=== PATIENT | female | born 1950 | race Caucasian/White ===

== ENCOUNTER 2019-04-01 06:35 | Day surgery (SDC) | payer MEDICARE, BC ==
[2019-04-01] MEDS ORDERED: Lactated Ringers 1,000 ML IV SCH (07:15)
[2019-04-01] MEDS ORDERED: Propofol 200 MG/20 ML SDV ONE ×2 (07:17→07:59)
[2019-04-01] MEDS ORDERED: Midazolam 1 MG/ML 2 ML SDV ONE (07:17)
[2019-04-01] MEDS ORDERED: fentaNYL 100 MCG/2 ML SDV ONE (07:17)
[2019-04-01 09:02] VITALS: PULSE 43
[2019-04-01 09:14] VITALS: BP 120/78
--- NOTE | 2019-04-01 10:59 | OR ---
DATE OF PROCEDURE: 04/01/2019 SURGEON: Dago Watt MD PREOPERATIVE DIAGNOSIS: History of colon polyps. POSTOPERATIVE DIAGNOSIS: 1. Poor colonoscopy prep. 2. Diverticulosis, both right and left side. 3. Two small transverse colon polyps. PROCEDURE PERFORMED: Colonoscopy to the cecum with biopsy resection of transverse colon polyp and proximal transverse colon polyp. ANESTHESIA: IV anesthesia with monitored anesthesia care. INDICATION: This 69-year-old white female is referred for a colonoscopy because of history of colon polyps. She says her last colonoscopic exam was done about 3 years ago. I counseled her for the procedure including risks and alternatives and she gave her informed consent to proceed. DESCRIPTION OF PROCEDURE: The patient was placed in the left lateral decubitus position. IV anesthesia was administered by the Anesthesia Service. Time-out was held. A rectal exam was performed, which was unremarkable except for noting some stool. The flexible video Olympus colonoscope was introduced through her anus, up her rectum, out her colon, all the way to the cecum. En route, we saw both right and left-sided diverticula. There was no bleeding nor inflammation associated with any of them. Additionally, en route in the midtransverse colon, we saw a small polyp which was removed with a few bites of biopsy forceps. Once the cecum was reached, the scope was slowly withdrawn examining the mucosa throughout. Here, another small polyp was seen in the proximal transverse colon, which likewise was removed with the biopsy forceps. The scope was then withdrawn the rest away with no other lesions noted other than previously noted. The scope was retroflexed in the rectum with the distal rectum appearing unremarkable. The scope was straightened and removed. She tolerated the procedure well. Dago Watt MD /[id number]
== END 2019-04-01 10:06 | disposition home or self-care (01) ==
LOC: JP.SDS 06:35
PROVIDERS: ATTEND Surgery
DX: Z12.11 Encounter for screening for malignant neoplasm of colon (principal); D12.3 Benign neoplasm of transverse colon; K63.5 Polyp of colon; K57.30 Diverticulosis of large intestine without perforation or abscess without bleeding; E78.5 Hyperlipidemia, unspecified; I10 Essential (primary) hypertension; I25.10 Atherosclerotic heart disease of native coronary artery without angina pectoris; E66.01 Morbid (severe) obesity due to excess calories; Z68.39 Body mass index [BMI] 39.0-39.9, adult; Z86.010 Personal history of colon polyps
CPT/HCPCS: 45380; 88305; J2250; J2704; J3010; J7120

== ENCOUNTER 2022-04-02 07:17 | Day surgery (SDC) | payer MEDICARE, BC ==
[~2022-04-02 07:17] MED LIST: Propofol 200 MG/20 ML SDV ONE; fentaNYL 50 MCG/ML SDV ONE
[2022-04-02] MEDS ORDERED: Lactated Ringers 1,000 ML IV SCH (08:40)
[2022-04-02 10:01] VITALS: BP 126/70; PULSE 52
== END 2022-04-02 10:30 | disposition home or self-care (01) ==
LOC: JP.SDS 07:17
PROVIDERS: ATTEND Student in an Organized Health Care Education/Training Program
DX: Z12.11 Encounter for screening for malignant neoplasm of colon (principal); Z86.010 Personal history of colon polyps; Z90.49 Acquired absence of other specified parts of digestive tract
CPT/HCPCS: G0104; J2704; J3010; J7120

== ENCOUNTER 2022-04-03 06:15 | Day surgery (SDC) | payer MEDICARE, BC ==
[2022-04-03] MEDS ORDERED: Lactated Ringers 1,000 ML IV SCH (07:00)
[2022-04-03] MEDS ORDERED: Midazolam 1 MG/ML 2 ML SDV ONE (07:26)
[2022-04-03] MEDS ORDERED: fentaNYL 100 MCG/2 ML SDV ONE (07:26)
[2022-04-03] MEDS ORDERED: Propofol 200 MG/20 ML SDV ONE ×2 (07:26→08:20)
[2022-04-03 09:17] VITALS: BP 121/70; PULSE 54
== END 2022-04-03 09:21 | disposition home or self-care (01) ==
LOC: JP.SDS 06:15
PROVIDERS: ATTEND Student in an Organized Health Care Education/Training Program
DX: Z12.11 Encounter for screening for malignant neoplasm of colon (principal); K63.5 Polyp of colon; K62.1 Rectal polyp; K57.30 Diverticulosis of large intestine without perforation or abscess without bleeding; I10 Essential (primary) hypertension; I25.10 Atherosclerotic heart disease of native coronary artery without angina pectoris; I21.4 Non-ST elevation (NSTEMI) myocardial infarction; Z79.899 Other long term (current) drug therapy
CPT/HCPCS: 45380; 88305; J2250; J2704; J3010; J7120

== ENCOUNTER 2023-10-31 08:29 | Day surgery (SDC) | payer MEDICARE, BC ==
[2023-10-31] MEDS: Sodium Chloride 0.9% 10 ML Syringe FLUSH PRN (09:16)
[2023-10-31 10:11] VITALS: BP 140/85; PULSE 56
== END 2023-10-31 10:15 | disposition home or self-care (01) ==
LOC: JP.SDS 08:29
PROVIDERS: ATTEND Ophthalmology
DX: E11.36 Type 2 diabetes mellitus with diabetic cataract (principal); H25.12 Age-related nuclear cataract, left eye; I10 Essential (primary) hypertension; I25.10 Atherosclerotic heart disease of native coronary artery without angina pectoris
CPT/HCPCS: 00142-QZ; J3490; V2632

== ENCOUNTER 2023-12-12 08:25 | Day surgery (SDC) | payer MEDICARE, BC ==
[2023-12-12] MEDS: Sodium Chloride 0.9% 10 ML Syringe FLUSH PRN (09:06)
[2023-12-12 09:46] VITALS: BP 137/90; PULSE 58
== END 2023-12-12 09:49 | disposition home or self-care (01) ==
LOC: JP.SDS 08:25
PROVIDERS: ATTEND Ophthalmology
DX: H25.11 Age-related nuclear cataract, right eye (principal)
CPT/HCPCS: 66984; J3490; V2632

== ENCOUNTER 2024-10-15 07:23 | Day surgery (SDC) | payer MEDICARE, BC ==
[~2024-10-15 07:23] MED LIST changes: +fentaNYL 100 MCG/2 ML SDV ONE; -fentaNYL 50 MCG/ML SDV ONE
[2024-10-15] MEDS: Lactated Ringers 1,000 ML IV SCH (07:57)
[2024-10-15 10:13] VITALS: BP 118/82; PULSE 53
== END 2024-10-15 10:25 | disposition home or self-care (01) ==
LOC: JP.SDS 07:23
PROVIDERS: ATTEND Surgery
DX: K20.90 Esophagitis, unspecified without bleeding (principal); K22.89 Other specified disease of esophagus; K44.9 Diaphragmatic hernia without obstruction or gangrene; I10 Essential (primary) hypertension
CPT/HCPCS: 43235; J2704; J3010; J7120; 00731-QZ